=== PATIENT | male | born 1995 | race Caucasian/White ===

== ENCOUNTER 2021-10-27 08:48 | Emergency (ER) | payer SELFPAY ==
[~2021-10-27] VITALS: Ht 190 cm; Wt 136.0 kg
--- NOTE | 2021-10-27 09:01 | ED General ---
General Stated Complaint: BANSAL,FEVER,N/V,BODY ACHES, LOSS OF TASTE Source of Information: Patient History of Present Illness Date Seen by Provider: Oct 27, 2021 Time Seen by Provider: 09:00 Initial Comments PT ARRIVES VIA POV FROM HOME C/O HEADACHE C/O BODY ACHES C/O FEVER UP TO 101.6 C/O NAUSEA/VOMITING C/O LOSS OF TASTE C/O MILD SHORTNESS OF BREATH C/O COUGH SYMPTOMS BEGAN 10/19/21 PT LIVES WITH GRANDMOTHER--SHE BEGAN HAVING SYMPTOMS FIRST, AND SHE IS CURRENTLY HOSPITALIZED WITH COVID-19 HAS NOT TAKEN ANYTHING FOR SYMPTOMS HAS NOT HAD COVID VACCINE HAS NOT HAD FLU VACCINE HAS NOT SOUGHT CARE UNTIL TODAY SYMPTOMS NO DIFFERENT TODAY PCP: BERNADETTE Allergies and Home Medications Allergies Coded Allergies: No Known Drug Allergies (Unverified , 10/27/21) Patient Home Medication List Home Medication List Reviewed: Yes Albuterol Sulfate (Proair Hfa) 1 Puff Puff, 2 PUFF IH Q4H Prescribed by: JOSEPH ANN on 10/27/21 1109 Dexamethasone (Decadron) 6 Mg Tablet, 6 MG PO DAILY Prescribed by: JOSEPH ANN on 10/27/21 1109 Doxycycline Hyclate (Doxycycline Hyclate) 100 Mg Tablet, 100 MG PO BID Prescribed by: JOSEPH ANN on 10/27/21 1109 Guaifenesin/Dextromethorphan (Mucinex Dm ER 1,200-60 mg Tab) 1 Each Tbmp.12hr, 1 EACH PO BID Prescribed by: JOSEPH ANN on 10/27/21 1109 Review of Systems Review of Systems Constitutional: see HPI, fever EENTM: see HPI, nose congestion Respiratory: cough, short of breath Cardiovascular: no symptoms reported Gastrointestinal: see HPI, nausea, vomiting Genitourinary: no symptoms reported Musculoskeletal: see HPI, other (BODY ACHES) Skin: no symptoms reported Psychiatric/Neurological: See HPI, Headache Hematologic/Lymphatic: No Symptoms Reported Immunological/Allergic: no symptoms reported Past [id number]-[id number] Hx Patient Social History Tobacco Use?: No Substance use?: No Alcohol Use?: No Past Medical History Surgeries: No Respiratory: No Cardiac: No Neurological: No Genitourinary: No Gastrointestinal: No Musculoskeletal: No Endocrine: Yes (OBESITY) HEENT: No Cancer: No Psychosocial: No Integumentary: No Blood Disorders: No Physical Exam Vital Signs Vital Signs - First Documented 10/27/21 08:55 Temp 36.9 Pulse 126 Resp 16 B/P (MAP) 148/95 (112) Pulse Ox 95 O2 Delivery Room Air Capillary Refill : Height, Weight, BMI Height: '" Weight: lbs. oz. kg; BMI Method: General Appearance: No Apparent Distress, WD/WN, Obese, Other (DOES NOT APPEAR TO BE IN ANY DISCOMFORT OR DISTRESS. 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 Norm as Tested Skin: Normal Color, Warm/Dry Focused Exam Sepsis Stage: Ruled Out Possible Source: Pulmonary Lactate Level 10/27/21 09:20: Lactic Acid Level 0.94 Time of Focused Exam: 10:30 Respiratory: Normal Breath Sounds, No Accessory Muscle Use, No Respiratory Distress Cardiovascular: Regular Rate, Rhythm, No Edema, No JVD, No Murmur, Normal Peripheral Pulses Capillary Refill: Less Than 3 Seconds Skin: normal color, warm/dry Lactic Acid Level Laboratory Tests Test 10/27/21 09:20 Lactic Acid Level 0.94 MMOL/L (0.50-2.00) Within 3hrs of presentation: Admin fluids, Blood cultures prior to ABX's, Focus exam, Lactate level Progress/Results/Core Measures Suspected Sepsis SIRS Temperature: Pulse: Respiratory Rate: Laboratory Tests 10/27/21 09:20: White Blood Count 5.8 Blood Pressure / Mean: 10/27/21 09:20: Lactic Acid Level 0.94 Laboratory Tests 10/27/21 09:20: Creatinine 1.04, INR Comment 1.0, Platelet Count 211, Total Bilirubin 0.8 Results/Orders Lab Results Laboratory Tests Test 10/27/21 09:00 10/27/21 09:20 10/27/21 10:04 Range/Units Influenza Type A (RT-PCR) Not Detected Not Detecte Influenza Type B (RT-PCR) Not Detected Not Detecte SARS-CoV-2 RNA (RT-PCR) Detected H Not Detecte White Blood Count 5.8 4.3-11.0 10^3/uL Red Blood Count 5.73 H 4.30-5.52 10^6/uL Hemoglobin 17.2 13.3-17.7 g/dL Hematocrit 50 40-54 % Mean Corpuscular Volume 86 80-99 fL Mean Corpuscular Hemoglobin 30 25-34 pg Mean Corpuscular Hemoglobin Concent 35 32-36 g/dL Red Cell Distribution Width 12.4 10.0-14.5 % Platelet Count 211 130-400 10^3/uL Mean Platelet Volume 9.3 9.0-12.2 fL Immature Granulocyte % (Auto) 1 % Neutrophils (%) (Auto) 77 H 42-75 % Lymphocytes (%) (Auto) 16 12-44 % Monocytes (%) (Auto) 6 0-12 % Eosinophils (%) (Auto) 0 0-10 % Basophils (%) (Auto) 0 0-10 % Neutrophils # (Auto) 4.5 1.8-7.8 10^3/uL Lymphocytes # (Auto) 0.9 L 1.0-4.0 10^3/uL Monocytes # (Auto) 0.4 0.0-1.0 10^3/uL Eosinophils # (Auto) 0.0 0.0-0.3 10^3/uL Basophils # (Auto) 0.0 0.0-0.1 10^3/uL Immature Granulocyte # (Auto) 0.0 0.0-0.1 10^3/uL Erythrocyte Sedimentation Rate 3 0-15 MM/HR Prothrombin Time 13.7 12.2-14.7 SEC INR Comment 1.0 0.8-1.4 Activated Partial Thromboplast Time 35 24-35 SEC D-Dimer 0.49 0.00-0.49 UG/ML Sodium Level 130 L 135-145 MMOL/L Potassium Level 3.8 3.6-5.0 MMOL/L Chloride Level 98 98-107 MMOL/L Carbon Dioxide Level 17 L 21-32 MMOL/L Anion Gap 15 H 5-14 MMOL/L Blood Urea Nitrogen 13 7-18 MG/DL Creatinine 1.04 0.60-1.30 MG/DL Estimat Glomerular Filtration Rate 86 BUN/Creatinine Ratio 13 Glucose Level 116 H 70-105 MG/DL Lactic Acid Level 0.94 0.50-2.00 MMOL/L Calcium Level 8.8 8.5-10.1 MG/DL Corrected Calcium 8.5 8.5-10.1 MG/DL Total Bilirubin 0.8 0.1-1.0 MG/DL Aspartate Amino Transf (AST/SGOT) 42 H 5-34 U/L Alanine Aminotransferase (ALT/SGPT) 39 0-55 U/L Alkaline Phosphatase 38 L 40-136 U/L Lactate Dehydrogenase 418 H 125-220 U/L C-Reactive Protein High Sensitivity 1.62 H 0.00-0.50 MG/DL Total Protein 8.2 6.4-8.2 GM/DL Albumin 4.4 3.2-4.5 GM/DL Procalcitonin 0.09 <0.10 NG/ML Urine Color ORANGE Urine Clarity SL CLOUDY Urine pH 6.0 5-9 Urine Specific [place] >=1.030 1.016-1.022 Urine Protein 2+ H NEGATIVE Urine Glucose (UA) NEGATIVE NEGATIVE Urine Ketones 1+ H NEGATIVE Urine Nitrite NEGATIVE NEGATIVE Urine Bilirubin 1+ H NEGATIVE Urine Urobilinogen 0.2 < = 1.0 MG/DL Urine Leukocyte Esterase NEGATIVE NEGATIVE Urine RBC (Auto) TRACE-I H NEGATIVE Urine RBC RARE /HPF Urine WBC RARE /HPF Urine Crystals PRESENT H /LPF Urine Amorphous Sediment FEW MATTHEW URATES H /LPF Urine Bacteria TRACE /HPF Urine Casts PRESENT /LPF Urine Hyaline Casts 10-25 H /LPF Urine Granular Casts 2-5 H /LPF Urine Mucus MODERATE H /LPF Urine Culture Indicated CULTURE PENDING My Orders Orders - JOSEPH ANN DO Covid 19 Inhouse Test (10/27/21 08:59) Influenza A And B By Pcr (10/27/21 08:59) Isolation Central Supply Req (10/27/21 08:59) Ed Iv/Invasive Line Start (10/27/21 09:11) Monitor-Rhythm Ecg Trace Only (10/27/21 09:11) Cbc With Automated Diff (10/27/21 09:11) Comprehensive Metabolic Panel (10/27/21 09:11) Ed Iv/Invasive Line Start (10/27/21 09:11) Lactated Ringers (Lr 1000 Ml Iv Solution (10/27/21 09:15) Fibrin Degradation Products (10/27/21 09:11) Procalcitonin (Pct) (10/27/21 09:11) Hs C Reactive Protein (10/27/21 09:11) Erythrocyte Sedimentation Rate (10/27/21 09:11) LDH (10/27/21 09:11) Blood Culture (10/27/21 09:11) Chest 1 View, Ap/Pa Only (10/27/21 09:11) Urinalysis (10/27/21 09:11) Urine Culture (10/27/21 09:11) Protime With Inr (10/27/21 09:11) Partial Thromboplastin Time (10/27/21 09:11) Ed Iv/Invasive Line Start (10/27/21 09:11) Vital Signs Adult Sepsis Patie Q15M (10/27/21 09:11) Remove Rings In Anticipation O (10/27/21 09:11) Lactic Acid Analyzer (10/27/21 09:11) Ondansetron Injection (Zofran Injectio (10/27/21 09:15) Ed Iv/Invasive Line Start (10/27/21 10:21) Lactated Ringers (Lr 1000 Ml Iv Solution (10/27/21 10:30) Ceftriaxone 1 Gm Pre-Mix (Rocephin 1 Gm (10/27/21 10:59) Dexamethasone Injection (Decadron Inje (10/27/21 11:00) Medications Given in ED Current Medications Medications Dose Ordered Sig/Lazara Route Start Time Stop Time Status Last Admin Dose Admin Dexamethasone Sodium Phosphate 6 mg ONCE ONCE IV 10/27/21 11:00 10/27/21 11:01 DC 10/27/21 11:18 6 MG Lactated Ringer's 1,000 ml @ 0 mls/hr Q0M ONCE IV 10/27/21 09:15 10/27/21 09:16 DC 10/27/21 09:24 1,000 MLS/HR Ondansetron HCl 4 mg ONCE ONCE IVP 10/27/21 09:15 10/27/21 09:16 DC 10/27/21 09:23 4 MG Vital Signs/I&O 10/27/21 10/27/21 08:55 11:54 Temp 36.9 Pulse 126 106 Resp 16 16 B/P (MAP) 148/95 (112) 142/89 Pulse Ox 95 97 O2 Delivery Room Air Room Air Capillary Refill : Progress Note : Progress Note PLACED IN ISOLATION ROOM PPE WORN AT ALL TIMES COVID -19 TESTING PERFORMED GIVEN IV FLUIDS, ZOFRAN, DECADRON AND ROCEPHIN NO HYPOXIA NO COUGH NO DYSPNEA NO FEVER DURING ER STAY DISCUSSED [facility] INFUSION, AND PT WISHES TO PROCEED 1102--CALLED JHOAN WITH INFUSION SERVICES, THEY WILL BE ABLE TO DO INFUSION TODAY AT NOON. ORDERS SENT TO PHARMACY Diagnostic Imaging Comments CXR--PER RADIOLOGIST REPORT AT 1100 FINDINGS: Heart size is normal. There is infiltrate in the right perihilar region. Left lung is clear. There is no effusion or pneumothorax. IMPRESSION: Findings suggestive of right perihilar infiltrate. Reviewed: Reviewed by Me Departure Impression Primary Impression: COVID-19 virus infection Additional Impression: Pneumonia due to COVID-19 virus Disposition: HOME, SELF-CARE Condition: Stable Departure-Patient Inst. Decision time for Depature: 11:05 Referrals: [facility] (PCP/Family) Primary Care Physician Patient Instructions: Preventing the Spread of an Infectious Disease, Bamlanivimab FDA Fact Sheet, COVID-19 (DC), Pneumonia, Adult ED Add. Discharge Instructions: LOTS OF CLEAR LIQUIDS TYLENOL 1 GRAM/ MOTRIN 800 MG 4 TIMES A DAY FOR PAIN OR FEVER GO DIRECTLY TO OUTPATIENT REGISTRATION FOR [facility] MONOCLONAL ANTIBODY INFUSION, WHEN YOU ARE RELEASED FROM ER RETURN TO ER IF SYMPTOMS WORSEN FOLLOW UP WITH [facility] IN 4-5 DAYS FOR FURTHER CARE QUARANTINE FOR 2 WEEKS Scripts Guaifenesin/Dextromethorphan (Mucinex Dm ER 1,200-60 mg Tab) 1 Each Tbmp.12hr 1 EACH PO BID, #20 EA Prov: JOSEPH ANN DO 10/27/21 Doxycycline Hyclate (Doxycycline Hyclate) 100 Mg Tablet 100 MG PO BID, #20 TAB 0 Refills Prov: JOSEPH ANN DO 10/27/21 Dexamethasone (Decadron) 6 Mg Tablet 6 MG PO DAILY, #10 TAB Prov: JOSEPH ANN DO 10/27/21 Albuterol Sulfate (PROAIR HFA) 1 Puff Puff 2 PUFF IH Q4H, #1 EA 1 PUFF = 90 MCG Prov: JOSEPH ANN DO 10/27/21 JOSEPH ANN DO Oct 27, 2021 09:01
[2021-10-27] MEDS ORDERED: LACTATED RINGERS 1,000 ML IV ONE ×2 (09:15→10:30)
[2021-10-27] MEDS ORDERED: ONDANSETRON 4 MG/2 ML (SDV) Z0FRAN IVP ONE (09:15)
[2021-10-27 09:33] LABS: BASOPHILS % (AUTO) 0 % (0-10); EOSINOPHILS % (AUTO) 0 % (0-10); HEMATOCRIT 50 % (40-54); HEMOGLOBIN 17.2 g/dL (13.3-17.7); LYMPHOCYTES # (AUTO) 0.9 10^3/uL (1.0-4.0); LYMPHOCYTES % (AUTO) 16 % (12-44); MEAN CORPUSCULAR HEMOGLOBIN 30 pg (25-34); MEAN CORPUSCULAR HGB CONC 35 g/dL (32-36); MEAN CORPUSCULAR VOLUME 86 fL (80-99); MEAN PLATELET VOLUME 9.3 fL (9.0-12.2); MONOCYTES # (AUTO) 0.4 10^3/uL (0.0-1.0); MONOCYTES % (AUTO) 6 % (0-12); NEUTROPHILS # (AUTO) 4.5 10^3/uL (1.8-7.8); NEUTROPHILS % (AUTO) 77 % (42-75); PLATELET COUNT 211 10^3/uL (130-400); WHITE BLOOD COUNT 5.8 10^3/uL (4.3-11.0)
[2021-10-27 09:44] LABS: ALBUMIN 4.4 GM/DL (3.2-4.5)
[2021-10-27 09:45] LABS: POTASSIUM 3.8 MMOL/L (3.6-5.0)
[2021-10-27 09:46] LABS: CALCIUM 8.8 MG/DL (8.5-10.1)
[2021-10-27 09:47] LABS: TOTAL PROTEIN 8.2 GM/DL (6.4-8.2)
[2021-10-27 09:49] LABS: BILIRUBIN,TOTAL 0.8 MG/DL (0.1-1.0); FIBRIN DEGRADATION PRODUCTS 0.49 UG/ML (0.00-0.49); PROTHROMBIN TIME PATIENT 13.7 SEC (12.2-14.7)
[2021-10-27 09:51] LABS: CREATININE SERUM 1.04 MG/DL (0.60-1.30)
[2021-10-27 10:03] LABS: ERYTHROCYTE SEDIMENTATION RATE 3 MM/HR (0-15)
[2021-10-27 10:05] LABS: CLARITY,URINE SL CLOUDY; COLOR,URINE ORANGE; GLUCOSE, URINE (UA) NEGATIVE (NEGATIVE); KETONES,URINE 1+ (NEGATIVE); LEUKOCYTE ESTERASE ,URINE NEGATIVE (NEGATIVE); NITRITE,URINE NEGATIVE (NEGATIVE); PROTEIN,URINE 2+ (NEGATIVE)
[2021-10-27 10:15] LABS: AMORPHOUS SEDIMENT,UR FEW AMOR URATES /LPF; BACTERIA,URINE TRACE /HPF; RBC,URINE RARE /HPF; WBC,URINE RARE /HPF
[2021-10-27 10:17] LABS: BILIRUBIN,URINE 1+ (NEGATIVE)
--- NOTE | 2021-10-27 10:40 | Diagnostic Imaging Report ---
INDICATION: Headache and fever as well as cough. TIME OF EXAM: 10:24 a.m. COMPARISON: No prior studies are available for comparison. FINDINGS: Heart size is normal. There is infiltrate in the right perihilar region. Left lung is clear. There is no effusion or pneumothorax. IMPRESSION: Findings suggestive of right perihilar infiltrate. Dictated by: Dictated on workstation # [id number]
[2021-10-27] MEDS ORDERED: cefTRIAXone 1 GM PRE-MIX 50 ML IV STA (10:59)
[2021-10-27] MEDS ORDERED: RT-ALBUINH IH (11:09)
[2021-10-27] MEDS ORDERED: GUAI1TBM19 PO (11:09)
[2021-10-27] MEDS ORDERED: DEXA6TAB6 PO (11:09)
[2021-10-27] MEDS ORDERED: DOXY100T2 PO (11:09)
[2021-10-27 11:54] VITALS: BP 142/89
== END 2021-10-27 11:54 | disposition home or self-care (01) ==
LOC: EDUNIT# 08:48 → ER 08:51
DX: U07.1 COVID-19 (principal); J12.82 Pneumonia due to coronavirus disease 2019; E66.9 Obesity, unspecified
CPT/HCPCS: 36415; 71045; 80053; 81000; 83605; 83615; 84145; 85025; 85379; 85610; 85652; 85730; 86141; 87040; 87088; 87636; 93041

== ENCOUNTER → 2021-10-27 | Outpatient (CLI) | payer SELFPAY ==
[~2021-10-27] VITALS: Ht 190.5 cm; Wt 136.0 kg
[~2021-10-27] MED LIST: ACETAMINOPHEN 500 MG TAB (TYLENOL) PO PRN; CASIRIVIMAB/IMDEVIMAB 1,200 MG in NS (IVPB) 250 ML IV ONE; DEXA6TAB6 PO; DOXY100T2 PO; EPINEPHrine INJECTION 1 MG/ML AMP IM PRN; GUAI1TBM19 PO; ONDANSETRON 4 MG/2 ML (SDV) Z0FRAN IV PRN; RT-ALBUINH IH; diphenhydrAMINE 50 MG/ML INJ (BENADRYL) IV PRN
[2021-10-27 12:15] VITALS: BP 151/85
[2021-10-27 14:32] VITALS: BP 155/82
== END ==
LOC: INFUSION 12:12
PROVIDERS: ATTEND Emergency Medicine
DX: U07.1 COVID-19 (principal)